=== PATIENT | male | born 1965 | race Caucasian/White ===

== ENCOUNTER 2016-12-22 06:24 | Emergency (ER) | payer OTHER ==
[~2016-12-22] VITALS: Ht 170.2 cm; Wt 80.0 kg
[2016-12-22 08:38] VITALS: BP 118/60
== END 2016-12-22 08:38 | disposition home or self-care (01) ==
LOC: ED 06:24
DX: R11.2 Nausea with vomiting, unspecified (principal); R19.7 Diarrhea, unspecified
CPT/HCPCS: J2405; J7030